=== PATIENT | female | born 1940 | race Caucasian/White ===

== ENCOUNTER 2019-06-06 12:09 | Emergency (ER) | payer MEDICARE, OTHER ==
[2019-06-06 12:48] LABS: #Basophils 0.1 thou/uL (0.0-0.2); #Eosinphils 0.1 thou/uL (0.0-0.7); #Lymphocytes 1.4 thou/uL (1.20-3.40); #Monocytes 0.6 thou/uL (0.11-0.59); #Neutrophils 5.1 thou/uL (1.40-6.50); %Basophils 0.8 % (0.0-1.0); %Eosinophils 1.2 % (0.0-10.0); %Lymphocytes 19.6 % (21.0-51.0); %Monocytes 8.1 % (0.0-10.0); %Neutrophils 70.3 % (42.0-75.0); Hemoglobin 13.6 g/dL (12.0-16.0); Mean Corpuscular HGB CONC 33.7 g/dL (32.0-36.0); Mean Corpuscular Hemoglobin 35.1 pg (27.0-31.0); Mean Platelet Volume 7.1 fL (7.4-10.4); Platelet Count 307 thou/uL (130-400); RBC Distribution Width 13.1 % (11.5-14.5); Red Blood Cell (RBC) Count 3.89 mill/uL (4.20-5.40); White Blood Cell (WBC) Count 7.2 thou/uL (4.8-10.8)
[2019-06-06 13:09] LABS: ALT (SGPT) 7 U/L (8-55); AST (SGOT) 17 U/L (5-34); Albumin 4.4 g/dL (3.4-4.8); Alkaline Phosphatase 57 U/L (40-150); Anion Gap 12 mmol/L (10-20); BUN (Urea Nitrogen) 19 mg/dL (9.8-20.1); Bilirubin, Total 0.4 mg/dL (0.2-1.2); CK (CPK) 35 U/L (29-168); Calc. Creatinine Clearance 0 mL/min (70-130); Calcium 10.3 mg/dL (7.8-10.44); Carbon Dioxide 29 mmol/L (23-31); Chloride 105 mmol/L (98-107); Estimated GFR-MDRD 76; Globulin 2.8 g/dL (2.4-3.5); Glucose 88 mg/dL (83-110); Magnesium 2.2 mg/dL (1.6-2.6); Potassium 3.6 mmol/L (3.5-5.1); Protein, Total 7.2 g/dL (6.0-8.3); Sodium 142 mmol/L (136-145)
--- NOTE | 2019-06-06 13:12 | RAD ---
EXAM: XR Chest 1 View Portable PROVIDED CLINICAL HISTORY: Hypertension COMPARISON: 05/26/2019 FINDINGS: Cardiac and mediastinal silhouettes is unchanged in appearance. Left subclavian cardiac pacing device is again seen in similar position. Emphysematous changes are suspected. No focal consolidation, pleural fluid or pneumothorax apparent. IMPRESSION: No evidence for an acute cardiopulmonary process.
[2019-06-06 15:57] LABS: Bilirubin Negative (Negative); Blood, Urine Negative (Negative); Clarity Clear (Clear); Glucose, Urine (Dipstick) Normal (Negative); Leukocyte Negative Leu/uL (Negative); Nitrite Negative (Negative); Protein, Urine (Dipstick) Negative (Neg-Trace); Urobilinogen Normal mg/dL (Less than 2)
[2019-06-06 16:07] LABS: Troponin I Less than 0.010 ng/mL (< 0.028)
== END 2019-06-06 17:10 | disposition home or self-care (01) ==
LOC: ERS 12:09
DX: I10 Essential (primary) hypertension (principal); M25.512 Pain in left shoulder; R51 Headache; R42 Dizziness and giddiness; Z95.0 Presence of cardiac pacemaker; Z79.899 Other long term (current) drug therapy
CPT/HCPCS: 36415; 71045; 80053; 81003; 82550; 83735; 84484; 85025; 93005

== ENCOUNTER 2019-08-23 08:10 | Outpatient (CLI) | payer MEDICARE, OTHER ==
--- NOTE | 2019-08-23 08:43 | MMO ---
Bilateral MAMMO Bilat Screen [facility]. CLINICAL HISTORY: Patient is 78 years old and is seen for screening. The patient has the following family history of breast cancer: sister, at age 69, malignant (generic). The patient has no personal history of cancer. VIEWS: The views performed were: bilateral craniocaudal with tomosynthesis; bilateral mediolateral oblique with tomosynthesis; bilateral exaggerated craniocaudal; and left mediolateral. FILMS COMPARED: The present examination has been compared to prior imaging studies performed at [facility] on 08/07/2015, 08/12/2016, 08/13/2017 and 08/17/2018. This study has been interpreted with the assistance of computer-aided detection. MAMMOGRAM FINDINGS: The breasts are extremely dense, which may lower the sensitivity of mammography. There are stable benign appearing calcifications seen in the left breast. There are no suspicious masses, calcifications or areas of architectural distortion. There are no suspicious masses, suspicious calcifications, or new areas of architectural distortion. IMPRESSION: THERE IS NO MAMMOGRAPHIC EVIDENCE OF MALIGNANCY. A ROUTINE FOLLOW-UP MAMMOGRAM IN 1 YEAR IS RECOMMENDED. THE RESULTS OF THIS EXAM WERE SENT TO THE PATIENT. ACR BI-RADS Category 2 - Benign finding MAMMOGRAPHY NOTE: 1. A negative mammogram report should not delay a biopsy if a dominant of clinically suspicious mass is present. 2. Approximately 10% to 15% of breast cancers are not detected by mammography. 3. Adenosis and dense breasts may obscure an underlying neoplasm. Reported by: HENRIETTA BRENNER MD Electonically Signed: [id number]
== END 2019-08-23 08:11 | disposition home or self-care (01) ==
LOC: BICMAMMO 08:10
PROVIDERS: ATTEND Family Medicine
DX: Z12.31 Encounter for screening mammogram for malignant neoplasm of breast (principal); Z80.3 Family history of malignant neoplasm of breast
CPT/HCPCS: 77063; 77067

== ENCOUNTER 2020-08-29 09:26 | Outpatient (CLI) | payer MEDICARE, OTHER ==
--- NOTE | 2020-08-29 09:52 | MMO ---
Bilateral MAMMO Bilat Screen [facility]. CLINICAL HISTORY: Patient is 79 years old and is seen for screening. The patient has the following family history of breast cancer: sister, at age 69, malignant (generic). The patient has no personal history of cancer. VIEWS: The views performed were: bilateral craniocaudal with tomosynthesis and bilateral mediolateral oblique with tomosynthesis. FILMS COMPARED: The present examination has been compared to prior imaging studies performed at [facility] on 08/12/2016, 08/13/2017, 08/17/2018 and 08/23/2019. This study has been interpreted with the assistance of computer-aided detection. MAMMOGRAM FINDINGS: The breasts are extremely dense, which may lower the sensitivity of mammography. There are stable benign appearing calcifications seen in both breasts. There are no suspicious masses, suspicious calcifications, or new areas of architectural distortion. IMPRESSION: THERE IS NO MAMMOGRAPHIC EVIDENCE OF MALIGNANCY. A ROUTINE FOLLOW-UP MAMMOGRAM IN 1 YEAR IS RECOMMENDED. THE RESULTS OF THIS EXAM WERE SENT TO THE PATIENT. ACR BI-RADS Category 2 - Benign finding MAMMOGRAPHY NOTE: 1. A negative mammogram report should not delay a biopsy if a dominant of clinically suspicious mass is present. 2. Approximately 10% to 15% of breast cancers are not detected by mammography. 3. Adenosis and dense breasts may obscure an underlying neoplasm. Reported by: SAEED VALDOVINOS MD Electonically Signed: [id number]
== END 2020-08-29 09:27 | disposition home or self-care (01) ==
LOC: BICMAMMO 09:26
PROVIDERS: ATTEND Family Medicine
DX: Z12.31 Encounter for screening mammogram for malignant neoplasm of breast (principal); Z80.3 Family history of malignant neoplasm of breast
CPT/HCPCS: 77063; 77067

== ENCOUNTER 2021-03-21 14:30 | Outpatient (CLI) | payer MEDICARE, OTHER | END 2021-03-21 14:31 | disposition home or self-care (01) | LOC: BICCT 14:30 | PROVIDERS: ATTEND Internal Medicine Cardiovascular Disease | DX: R51.9 Headache, unspecified (principal) | CPT/HCPCS: 70450 ==

== ENCOUNTER 2021-09-04 08:41 | Outpatient (CLI) | payer MEDICARE, OTHER | END 2021-09-04 08:42 | disposition home or self-care (01) | LOC: BICMAMMO 08:41 | PROVIDERS: ATTEND Family Medicine | DX: Z12.31 Encounter for screening mammogram for malignant neoplasm of breast (principal); N64.89 Other specified disorders of breast; Z80.3 Family history of malignant neoplasm of breast | CPT/HCPCS: 77063; 77067 ==

== ENCOUNTER 2021-09-06 09:22 | Outpatient (CLI) | payer MEDICARE, OTHER | END 2021-09-06 09:23 | disposition home or self-care (01) | LOC: BICMAMMO 09:22 | PROVIDERS: ATTEND Family Medicine | DX: R92.2 Inconclusive mammogram (principal) | CPT/HCPCS: 77065; G0279 ==

== ENCOUNTER 2022-10-28 10:51 | Outpatient (CLI) | payer MEDICARE, BC | END 2022-10-28 10:52 | disposition home or self-care (01) | LOC: BICMAMMO 10:51 | PROVIDERS: ATTEND Family Medicine | DX: Z12.31 Encounter for screening mammogram for malignant neoplasm of breast (principal); Z80.3 Family history of malignant neoplasm of breast | CPT/HCPCS: 77063; 77067 ==

== ENCOUNTER 2023-05-25 05:54 | Day surgery (SDC) | payer MEDICARE, BC ==
[2023-05-25] MEDS ORDERED: Heparin 10,000 UNITS/ 10 ML VIAL ONE (06:58)
[2023-05-25] MEDS ORDERED: Protamine Sulfate 50 MG/5 ML VIAL ONE (06:58)
[2023-05-25] MEDS ORDERED: Heparin 25,000 units/D5W 500 ML ONE (06:58)
[2023-05-25] MEDS ORDERED: Isoproterenol 0.2 MG/1 ML AMP ONE ×2 (06:58→08:55)
[2023-05-25] MEDS ORDERED: fentaNYL PF 100 MCG/2 ML SYRINGE ONE (07:20)
[2023-05-25] MEDS ORDERED: Lidocaine 4% Topical Sol 50 ML BOT ONE (07:37)
[2023-05-25] MEDS ORDERED: Scopolamine 1.5 mg/72 hour Patch ONE (08:04)
[2023-05-25] MEDS ORDERED: PROPOFOL 200 MG/20 ML VIAL ONE (08:29)
[2023-05-25] MEDS ORDERED: Lidocaine 1% PF 5 ML VIAL ONE (08:29)
[2023-05-25] MEDS ORDERED: PHENYLEPHRINE-NS 100 MCG/ML 10 ML SYRINGE ONE (08:29)
[2023-05-25] MEDS ORDERED: Rocuronium Bromide 10 MG/ML (10ML VIAL) ONE (08:29)
[2023-05-25] MEDS ORDERED: Dexamethasone 20 MG/5 ML VIAL ONE (08:29)
[2023-05-25] MEDS ORDERED: Ondansetron PF 4 MG/2 ML Vial ONE ×3 (08:29→15:46)
[2023-05-25] MEDS ORDERED: NEOSTIGMINE 3 MG/3 ML SYR 3 MG/3 ML SYRINGE ONE (08:29)
[2023-05-25] MEDS ORDERED: Glycopyrrolate 0.2 MG/ML 5 ML SYRINGE ONE (08:29)
[2023-05-25] MEDS ORDERED: SUGAMMADEX SODIUM 200 MG/2 ML VIAL ONE (11:53)
[2023-05-25] MEDS ORDERED: HYDROmorphone 2 MG/ML VIAL SLOW IVP PRN (12:14)
[2023-05-25] MEDS ORDERED: Promethazine HCl 25 MG/ML VIAL IM PRN (12:14)
[2023-05-25] MEDS ORDERED: Ondansetron HCl/PF 4 MG/2 ML Vial IVP PRN (12:14)
[2023-05-25] MEDS ORDERED: Ketorolac Tromethamine 30 MG/ML VIAL ONE (12:52)
[2023-05-25] MEDS ORDERED: fentaNYL 50 mcg/mL 1 mL Vial ONE (13:04)
== END 2023-05-25 16:00 | disposition home or self-care (01) ==
LOC: SDC 05:54
PROVIDERS: ATTEND Internal Medicine Cardiovascular Disease
DX: I48.19 Other persistent atrial fibrillation (principal); I48.0 Paroxysmal atrial fibrillation; I44.1 Atrioventricular block, second degree; I35.1 Nonrheumatic aortic (valve) insufficiency; I34.0 Nonrheumatic mitral (valve) insufficiency; I36.9 Nonrheumatic tricuspid valve disorder, unspecified; I10 Essential (primary) hypertension; E78.00 Pure hypercholesterolemia, unspecified; I48.4 Atypical atrial flutter; K22.70 Barrett's esophagus without dysplasia; M81.0 Age-related osteoporosis without current pathological fracture; R00.2 Palpitations; I44.7 Left bundle-branch block, unspecified; Z90.49 Acquired absence of other specified parts of digestive tract; Z90.710 Acquired absence of both cervix and uterus; Z98.890 Other specified postprocedural states; Z79.01 Long term (current) use of anticoagulants; Z95.0 Presence of cardiac pacemaker; Z86.79 Personal history of other diseases of the circulatory system; Z88.0 Allergy status to penicillin; Z91.011 Allergy to milk products; Z79.899 Other long term (current) drug therapy
CPT/HCPCS: 85347 ×2; 93005; 93462; 93621; 93623; 93653; 93655; C1732 ×2; C1760; C1894; J3010; 93010; C1759; J1100; J1644; J1885; J2405; J2704; J2720

== ENCOUNTER 2023-07-10 14:07 | Outpatient (CLI) | payer MEDICARE, BC | END 2023-07-10 14:08 | disposition home or self-care (01) | LOC: BICMAMMO 14:07 | PROVIDERS: ATTEND Family Medicine | DX: M81.0 Age-related osteoporosis without current pathological fracture (principal); M50.122 Cervical disc disorder at C5-C6 level with radiculopathy | CPT/HCPCS: 72040; 77080 ==

== ENCOUNTER 2023-10-08 09:33 | Outpatient (CLI) | payer MEDICARE, BC | END 2023-10-08 09:34 | disposition home or self-care (01) | LOC: BICRAD 09:33 | PROVIDERS: ATTEND Internal Medicine Rheumatology | DX: M25.562 Pain in left knee (principal); G89.29 Other chronic pain | CPT/HCPCS: 73565 ==

== ENCOUNTER 2023-12-18 14:28 | Outpatient (CLI) | payer MEDICARE, BC | END 2023-12-18 14:29 | disposition home or self-care (01) | LOC: BICMAMMO 14:28 | PROVIDERS: ATTEND Family Medicine | DX: Z12.31 Encounter for screening mammogram for malignant neoplasm of breast (principal); Z80.3 Family history of malignant neoplasm of breast | CPT/HCPCS: 77063; 77067 ==

== ENCOUNTER 2024-04-25 06:09 | Day surgery (SDC) | payer MEDICARE, BC ==
[2024-04-20 15:04] VITALS: BMI 20.5
[2024-04-20 15:26] LABS: PTT 26.5 sec (22.0-33.0); Prothrombin Time 11.1 sec (9.5-12.1)
[2024-04-20 15:31] LABS: Hematocrit 35.9 % (34.9-44.5); Hemoglobin 12.4 g/dL (12.0-15.5); Mean Corpuscular HGB CONC 34.5 g/dL (32.0-36.0); Mean Corpuscular Hemoglobin 36.8 pg (27.0-33.0); Mean Corpuscular Volume 106.5 fL (81.6-98.3); Mean Platelet Volume 9.6 fL (7.4-10.4); Platelet Count 375 10x3/uL (150-450); RBC Distribution Width 13.6 % (11.5-14.5); Red Blood Cell (RBC) Count 3.37 10x6/uL (3.90-5.03); White Blood Cell (WBC) Count 5.5 10x3/uL (3.5-10.5)
[2024-04-20 15:39] LABS: Anion Gap 12 mmol/L (10-20); BUN (Urea Nitrogen) 22 mg/dL (9.8-20.1); Calc. Creatinine Clearance 30 mL/min (70-130); Calcium 9.6 mg/dL (7.8-10.44); Carbon Dioxide 28 mmol/L (23-31); Chloride 107 mmol/L (98-107); Estimated GFR 44; Glucose 99 mg/dL (83-110); Potassium 4.1 mmol/L (3.5-5.1); Sodium 143 mmol/L (136-145)
[2024-04-25] MEDS ORDERED: PROPOFOL 20 ML ONE (07:05)
[2024-04-25] MEDS ORDERED: GLYCOPYRROLATE/PF 0.2 MG/ML VIAL ONE (07:05)
[2024-04-25] MEDS ORDERED: PHENYLEPHRINE-NS 100 MCG/ML 10 ML SYRINGE ONE (07:05)
[2024-04-25] MEDS ORDERED: Lidocaine 1% PF 5 ML VIAL ONE (07:05)
== END 2024-04-25 09:05 | disposition home or self-care (01) ==
LOC: SDC 06:09
PROVIDERS: ATTEND Internal Medicine Cardiovascular Disease
PROC: B246ZZ4 Ultrasonography of Right and Left Heart, Transesophageal (ICD-10-PCS; principal; 2024-04-25)
DX: I48.19 Other persistent atrial fibrillation (principal); I08.1 Rheumatic disorders of both mitral and tricuspid valves; Z88.0 Allergy status to penicillin
CPT/HCPCS: 80048; 85027; 85610; 85730; 93312; J2704; J3490

== ENCOUNTER 2024-08-18 13:02 | Outpatient (CLI) | payer MEDICARE, BC ==
[2024-08-18 14:18] LABS: #Basophils Less than 0.03 10x3/uL (0.0-0.2); %Basophils 0.3 % (0.0-1.0); %Eosinophils 1.6 % (0.0-10.0); %Lymphocytes 14.8 % (21.0-51.0); %Monocytes 6.3 % (0.0-10.0); %Neutrophils 76.5 % (42.0-75.0); Hematocrit 37.1 % (36.0-47.0); Hemoglobin 12.3 g/dL (12.0-16.0); Mean Corpuscular HGB CONC 33.2 g/dL (32.0-36.0); Mean Corpuscular Hemoglobin 36.3 pg (27.0-31.0); Mean Corpuscular Volume 109.4 fL (78.0-98.0); Mean Platelet Volume 9.1 fL (7.4-10.4); Platelet Count 325 10x3/uL (130-400); RBC Distribution Width 14.8 % (11.5-14.5); Red Blood Cell (RBC) Count 3.39 mill/uL (4.20-5.40)
[2024-08-18 14:32] LABS: INR-International Normal Ratio 0.9; PTT 24.2 sec (22.9-36.1); Prothrombin Time 12.3 sec (12.0-14.7)
[2024-08-18 14:33] LABS: Anion Gap 13 mmol/L (10-20); BUN (Urea Nitrogen) 18 mg/dL (9.8-20.1); Calc. Creatinine Clearance 0 mL/min (70-130); Calcium 9.1 mg/dL (7.8-10.44); Carbon Dioxide 26 mmol/L (23-31); Chloride 106 mmol/L (98-107); Estimated GFR 64; Glucose 91 mg/dL (83-110); Potassium 3.8 mmol/L (3.5-5.1); Sodium 141 mmol/L (136-145)
== END 2024-08-18 13:03 | disposition home or self-care (01) ==
LOC: LABBT 13:02
PROVIDERS: ATTEND Internal Medicine Cardiovascular Disease
DX: Z01.812 Encounter for preprocedural laboratory examination (principal); I48.0 Paroxysmal atrial fibrillation
CPT/HCPCS: 80048; 85025; 85610; 85730

== ENCOUNTER 2024-08-24 06:05 | Day surgery (SDC) | payer MEDICARE, BC ==
[2024-08-18 13:41] VITALS: BMI 20.5
[2024-08-24] MEDS ORDERED: Lidocaine 1% PF 5 ML VIAL ONE (07:41)
[2024-08-24] MEDS ORDERED: PROPOFOL 200 MG/20 ML VIAL ONE (07:41)
== END 2024-08-24 09:05 | disposition home or self-care (01) ==
LOC: SDC 06:05
PROVIDERS: ATTEND Internal Medicine Cardiovascular Disease
PROC: B246ZZ4 Ultrasonography of Right and Left Heart, Transesophageal (ICD-10-PCS; principal; 2024-08-24)
DX: I48.0 Paroxysmal atrial fibrillation (principal); Z95.818 Presence of other cardiac implants and grafts; Z88.0 Allergy status to penicillin
CPT/HCPCS: 93312; J2704